=== PATIENT | male | born 1985 | race Caucasian/White ===

== ENCOUNTER 2017-05-15 10:03 | Emergency (ER) | payer MEDICAID ==
[2017-05-15] MEDS ORDERED: CYCLOBENZAPRINE 10 MG TAB PO ONE (11:22)
[2017-05-15] MEDS ORDERED: AMOXICILLIN/CLAVULANATE POT 875/125 MG TAB PO ONE (11:22)
[2017-05-15] MEDS ORDERED: DEXAMETHASONE 4 MG TAB PO ONE (11:22)
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
[2017-05-15] MEDS ORDERED: LIDOCAINE 5% 1 EA PATCH TD SCH (11:45)
[2017-05-15 12:04] VITALS: BP 122/74; PULSE 78; RESP 14; TEMP 97.9; O2SAT 96
[2017-05-15] MEDS ORDERED: PATCH REMOVAL 1 EA PATCH TD SCH (21:00)
== END 2017-05-15 12:04 | disposition home or self-care (01) ==
PROC: 0H9GXZZ Drainage of Left Hand Skin, External Approach (ICD-10-PCS; principal; 2017-05-15)
DX: L03.012 Cellulitis of left finger (principal); M54.5 Low back pain; F17.200 Nicotine dependence, unspecified, uncomplicated

== ENCOUNTER 2017-09-04 06:13 | Emergency (ER) | payer MEDICAID ==
[2017-09-04 06:22] VITALS: BP 166/107
[2017-09-04] MEDS ORDERED: LIDOCAINE 4%/MENTHOL 1% PATCH TD ONE (06:44)
[2017-09-04] MEDS ORDERED: IBUPROFEN 600 MG TAB PO ONE (06:45)
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
[2017-09-04] MEDS ORDERED: PATCH REMOVAL 1 EA PATCH TD SCH (21:00)
== END 2017-09-04 06:57 | disposition home or self-care (01) ==
DX: M54.9 Dorsalgia, unspecified (principal); J45.909 Unspecified asthma, uncomplicated; F17.200 Nicotine dependence, unspecified, uncomplicated

== ENCOUNTER 2017-11-15 17:28 | Emergency (ER) | payer MEDICAID ==
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
[2017-11-15] MEDS ORDERED: KETOROLAC 30 MG/1 ML SDV IM ONE (18:09)
[2017-11-15] MEDS ORDERED: KETOROLAC 30 MG/1 ML SDV ONE (18:09)
[2017-11-15 18:20] VITALS: BP 125/79
== END 2017-11-15 18:20 | disposition home or self-care (01) ==
LOC: EDUNIT#
DX: S39.92XA Unspecified injury of lower back, initial encounter (principal); F17.200 Nicotine dependence, unspecified, uncomplicated; J45.909 Unspecified asthma, uncomplicated; V13.9XXA Unspecified pedal cyclist injured in collision with car, pick-up truck or van in traffic accident, initial encounter; Y92.410 Unspecified street and highway as the place of occurrence of the external cause; Y99.8 Other external cause status; Y93.89 Activity, other specified
CPT/HCPCS: J1885

== ENCOUNTER 2018-06-13 11:47 | Emergency (ER) | payer MEDICAID ==
[2018-06-13] MEDS ORDERED: NS 1,000 ML IV ONE ×2 (12:41→13:05)
[2018-06-13] MEDS ORDERED: fentaNYL 100 MCG/2 ML INJ IVP ONE (12:42)
[2018-06-13] MEDS ORDERED: ONDANSETRON 4 MG/2 ML VIAL IVP ONE (12:42)
--- NOTE | 2018-06-13 12:58 | EDPHY ---
H & P Time Seen by Provider: 06/13/18 12:57 HPI/ROS: Chief complaint. Abdominal pain HPI. A 32-year-old male with sharp right-sided abdominal pain for 2 hr. Nausea without vomiting or diarrhea. Pain does go through to his back. He describes as sharp and constant. No urinary symptoms. No chest pain or shortness of breath. No previous abdominal surgery. Have tried 7up without relief. ROS 10 systems were reviewed and negative with the exception of the elements mentioned in the history of present illness Past Medical/Surgical History: Herniated disc, schizophrenia, asthma Social History: Single, daily smoker, no alcohol Smoking Status: Light smoker Physical Exam: General Appearance: Alert well-developed male mild distress. Vital signs are stable Eyes: Pupils equal and round no pallor or injection. ENT, Mouth: Mucous membranes are moist. Respiratory: There are no retractions, lungs are clear to auscultation. Cardiovascular: Regular rate and rhythm. Gastrointestinal: Abdomen is soft with tenderness right mid and right lower quadrant. Normal bowel sounds. No masses. Neurological: Awake and alert, sensory and motor exams grossly normal. Skin: Warm and dry, no rashes. Musculoskeletal: Neck is supple nontender. Extremities symmetrical, full range of motion. Psychiatric: Patient is oriented X 3, there is no agitation. Constitutional: Initial Vital Signs Temperature (C) 36.6 C 06/13/18 11:50 Heart Rate 88 06/13/18 11:50 Respiratory Rate 18 06/13/18 11:50 Blood Pressure 126/96 H 06/13/18 11:50 O2 Sat (%) 97 06/13/18 11:50 O2 Delivery Mode Room Air Allergies/Adverse Reactions: No Known Allergies Allergy (Verified 06/13/18 11:50) Home Medications: Medication Instructions Recorded NK [No Known Home Meds] 06/13/18 Medical Decision Making - Diagnostics Imaging Results: CT abdomen pelvis with IV contrast reviewed by me and discussed with Dr. Grover significant only for constipation. Procedures: IV normal saline ED Course/Re-evaluation: Re-evaluation 2:00 p.m.. Patient and I discussed imaging and lab results. We discussed treatment plan including criteria for return importance of follow-up and further evaluation. He expresses understanding Differential Diagnosis: I considered gastritis, diverticulitis, appendicitis. - Data Points Laboratory Results: Laboratory Results 06/13/18 12:40 06/13/18 12:40 06/13/18 06/13/18 12:40 12:40 WBC 10.75 10^3/uL H 10^3/uL (3.80-9.50) RBC 5.20 10^6/uL 10^6/uL (4.40-6.38) Hgb 15.3 g/dL g/dL (13.7-17.5) Hct 44.9 % % (40.0-51.0) MCV 86.3 fL fL (81.5-99.8) MCH 29.4 pg pg (27.9-34.1) MCHC 34.1 g/dL g/dL (32.4-36.7) RDW 13.4 % % (11.5-15.2) Plt Count 273 10^3/uL 10^3/uL (150-400) MPV 9.2 fL fL (8.7-11.7) Neut % (Auto) 48.1 % % (39.3-74.2) Lymph % (Auto) 36.9 % % (15.0-45.0) [place] % (Auto) 9.1 % % (4.5-13.0) Eos % (Auto) 4.2 % % (0.6-7.6) Baso % (Auto) 1.0 % % (0.3-1.7) Nucleat RBC Rel Count 0.0 % % (0.0-0.2) Absolute Neuts (auto) 5.17 10^3/uL 10^3/uL (1.70-6.50) Absolute Lymphs (auto) 3.97 10^3/uL H 10^3/uL (1.00-3.00) Absolute Monos (auto) 0.98 10^3/uL H 10^3/uL (0.30-0.80) Absolute Eos (auto) 0.45 10^3/uL H 10^3/uL (0.03-0.40) Absolute Basos (auto) 0.11 10^3/uL H 10^3/uL (0.02-0.10) Absolute Nucleated RBC 0.00 10^3/uL 10^3/uL (0-0.01) Immature Gran % 0.7 % % (0.0-1.1) Immature Gran # 0.07 10^3/uL 10^3/uL (0.00-0.10) Sodium 138 mEq/L mEq/L (135-145) Potassium 4.2 mEq/L mEq/L (3.5-5.2) Chloride 109 mEq/L mEq/L (97-110) Carbon Dioxide 23 mEq/l mEq/l (22-31) Anion Gap 6 mEq/L mEq/L (6-14) BUN 18 mg/dL mg/dL (7-23) Creatinine 0.8 mg/dL mg/dL (0.7-1.3) Estimated GFR > 60 Glucose 71 mg/dL mg/dL (70-100) Calcium 9.4 mg/dL mg/dL (8.5-10.4) Total Bilirubin 0.3 mg/dL mg/dL (0.1-1.4) Conjugated Bilirubin 0.3 mg/dL mg/dL (0.0-0.5) Unconjugated Bilirubin 0.0 mg/dL mg/dL (0.0-1.1) AST 18 IU/L IU/L (17-59) ALT 29 IU/L IU/L (21-72) Alkaline Phosphatase 59 IU/L IU/L (38-126) Total Protein 6.9 g/dL g/dL (6.3-8.2) Albumin 4.2 g/dL g/dL (3.5-5.0) Lipase 159 IU/L IU/L (23-300) Medications Given: Discontinued Medications Fentanyl (Sublimaze) 100 mcg IVP EDNOW ONE Stop: 06/13/18 12:43 Last Admin: 06/13/18 12:51 Dose: 100 mcg Sodium Chloride (Ns) 1,000 mls @ 0 mls/hr IV ONCE ONE PRN Reason: Wide Open Stop: 06/13/18 12:42 Last Admin: 06/13/18 12:41 Dose: 1,000 mls Sodium Chloride (Ns) 1,000 mls @ 0 mls/hr IV EDNOW ONE; Wide Open PRN Reason: Protocol Stop: 06/13/18 13:06 Last Admin: 06/13/18 13:12 Dose: 1,000 mls Ondansetron HCl (Zofran) 4 mg IVP EDNOW ONE Stop: 06/13/18 12:43 Last Admin: 06/13/18 12:51 Dose: 4 mg Departure - Departure Disposition: Home, Routine, Self-Care Clinical Impression: Abdominal pain Qualifiers: Abdominal location: right lower quadrant Qualified Code(s): R10.31 - Right lower quadrant pain Condition: Good Instructions: Constipation (ED) Additional Instructions: Increased fluids including fruit and prune juice. Magnesium citrate, Metamucil, bisacodyl from grocery store. Return for worsening symptoms. Recheck 1-2 days for continuing symptoms Referrals: NONE *PRIMARY CARE P,. [Primary Care Provider] - As per Instructions [facility] [Outside] - 2-3 days, if not improved
[2018-06-13 13:05] LABS: PLATELET COUNT 273 10^3/uL (150-400)
[2018-06-13] MEDS ORDERED: IOHEXOL 350mgI/ML (OMNIPAQUE) 150 ML BTL IV ONE (13:06)
[2018-06-13 14:14] VITALS: BP 137/84
== END 2018-06-13 14:10 | disposition home or self-care (01) ==
DX: R10.31 Right lower quadrant pain (principal)
CPT/HCPCS: 96374; J2405; J3010; Q9967

== ENCOUNTER 2018-09-27 11:40 | Emergency (ER) | payer MEDICAID ==
[2018-09-27 11:52] VITALS: BP 129/86
--- NOTE | 2018-09-27 12:11 | EDPHY ---
H & P Stated Complaint: c/o worsening back pain related to chronic back pain Time Seen by Provider: 09/27/18 12:01 HPI/ROS: CHIEF COMPLAINT: Chronic back pain with lumbar radiculopathy HISTORY OF PRESENT ILLNESS: Patient has a longstanding history of chronic low back pain with lumbar radiculopathy. Presents the emergency department stating that ibuprofen and Tylenol are not managing his pain. The patient was evaluated at the [facility] by Dr. Conrad. He is currently reviewing the patient's MRIs and considering the patient for surgery. The patient denies any bowel or bladder dysfunction. He denies any acute weakness today. The patient does report chronic weakness that progresses with ambulation. The patient denies any fever injection drug use. He denies additional acute complaints. REVIEW OF SYSTEMS: A comprehensive 10 point review of systems is otherwise negative aside from elements mentioned in the history of present illness. Source: Patient - Medical/Surgical History Hx Asthma: Yes Hx Chronic Respiratory Disease: No Hx Diabetes: No Hx Cardiac Disease: No Hx Renal Disease: No Hx Cirrhosis: No Hx Alcoholism: No Hx HIV/AIDS: No Hx Splenectomy or Spleen Trauma: No Other PMH: herniated disc, SCHIZOPHRENIA, ASTHMA - Social History Smoking Status: Light smoker - Physical Exam Exam: General Appearance: Alert, no distress Eyes: Pupils equal and round no pallor or injection ENT, Mouth: Mucous membranes moist Respiratory: There are no retractions, lungs are clear to auscultation Cardiovascular: Regular rate and rhythm Gastrointestinal: Abdomen is soft and nontender, no masses, bowel sounds normal Neurological: 5/5 strength noted bilateral lower extremities in all muscle groups, normal reflexes, normal sensory exam Skin: Warm and dry, no rashes Musculoskeletal: Tenderness to palpation in the bilateral paraspinal musculature. Extremities: symmetrical, full range of motion Psychiatric: Patient is oriented X 3, there is no agitation Constitutional: Initial Vital Signs Temperature (C) 36.7 C 09/27/18 11:47 Heart Rate 78 09/27/18 11:47 Respiratory Rate 16 09/27/18 11:47 Blood Pressure 129/86 H 09/27/18 11:47 O2 Sat (%) 96 09/27/18 11:47 O2 Delivery Mode Room Air Allergies/Adverse Reactions: No Known Allergies Allergy (Verified 09/27/18 11:52) Home Medications: Medication Instructions Recorded NK [No Known Home Meds] 06/13/18 Medical Decision Making ED Course/Re-evaluation: I reviewed the consult note from the patient's visit with a neurosurgeon in August of this year. He is currently plugged into that clinic and being evaluated for possible surgical intervention. The patient has no red flag warnings or worrisome findings on his exam today. The patient has been given a short course of Percocet. I have informed him that we will not be able to provide narcotic medications for his chronic back pain in the future. I have asked him to follow up with a new primary care provider should he have ongoing pain management issues. Departure - Departure Disposition: Home, Routine, Self-Care Clinical Impression: Lumbar radiculopathy Condition: Good Instructions: Lumbar Radiculopathy (ED) Additional Instructions: 1. I recommend scheduling a follow-up appointment with Dr. Conrad. You have also been given the number of our on-call neurosurgeon who would be happy to see you and render a 2nd opinion. 2. You have been given a short course of Percocet. We cannot refill this medication in the emergency department in the future. You should establish care with a new primary care provider if you are unable to get regular pain medications through your current physicians. I would recommend scheduling a [facility]up appointment [facility] to [facility] primary care. Referrals: Monico Russell MD [Medical Doctor] - As per Instructions [facility],. [Clinic] - As per Instructions
== END 2018-09-27 12:18 | disposition home or self-care (01) ==
DX: M54.16 Radiculopathy, lumbar region (principal); F20.9 Schizophrenia, unspecified; J45.909 Unspecified asthma, uncomplicated

== ENCOUNTER 2018-10-31 09:28 | Emergency (ER) | payer MEDICAID | END 2018-10-31 09:35 | disposition left against medical advice (07) ==